=== PATIENT | male | born 1955 | race Caucasian/White ===

== ENCOUNTER 2016-06-24 10:13 | Inpatient (IN) | payer OTHER ==
[~2016-06-24] VITALS: Ht 193 cm; Wt 131.4 kg
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
[~2016-06-24 10:13] MED LIST: 0.9% SODIUM CHLO3 ML INH; ANTI-FUNGAL71 GM TOP; ASMANEX220 MC1 INH; ATIVAN 0.5MG0.5 MG PO; CHLORASEPTIC SP1 BOT PO; DULCOLAX10 MG R; DULERA 200 MCG/51 EA INH; ENGERIX B IM; FUROSEMIDE20 MG PO; KLOR-CON M2020 MEQ PO; LOVENOX40 MG/0.4 SUB-Q; MILK OF MA400 MG/5 M PO; MINERIN CREME454 GM TOP; MIRALAX17 GM PO; NEURONTIN300 MG PO; NORCO 10-325 T1 EACH PO; NORVASC5 MG PO; PAMELOR25 M1 PO; PRAMOSONE TOP; PROVENTIL OR V6.7 GM INH; ROBITUSSIN100 MG/5 M PO; SPIRIVA18 MCG INH; STIOLTO RESPIMAT4 GM INH; THERA-VITE W/ B1 TAB PO; TYLENOL325 MG PO; ULTRAM50 MG PO; VITAMIN B-1100 M1 PO
[2016-06-24 11:03] LABS: BILIRUBIN URINE NEGATIVE (NEGATIVE); BLOOD URINE NEGATIVE /UL (NEGATIVE); GLUCOSE URINE NEGATIVE (NEGATIVE); KETONE URINE NEGATIVE (NEGATIVE); LEUKOCYTES URINE NEGATIVE /UL (NEGATIVE); NITRITE URINE NEGATIVE (NEGATIVE); PH URINE 6.5 (4.0-8.0); PROTEIN URINE NEGATIVE (NEGATIVE); SPEC GRAVITY URINE 1.015 (1.003-1.035); UROBILINOGEN URINE 12 mg/dL (NORMAL)
[2016-06-24 11:07] LABS: COLOR URINE YELLOW (YELLOW); TURBIDITY URINE CLEAR (CLEAR)
--- NOTE | 2016-06-24 14:36 | NUR ---
Significant Event: Pt admitted at 1000. Up in room and reynolds with SBA, sl. unsteady, harper. well. [place] collar on. Weakness to upper and lower ext. Hand grasps are weak. Left hand abrasions and dressing present. Multiple areas of ecchymosis, and abrasions. Laceration with sutures covered by bandaid to left forhead. Percocet 1 tab at 1200. HX of ETOH abuse, Hep C. Yesterday on [facility]U had run of A Fib, echo was done this am prior to transfer. Admission UA has been sent. Follow up: safety, activity, pain management, collar.
--- NOTE | 2016-06-25 00:22 | NUR ---
Significant Event: Alert and oriented. Ad bella in room. Standby assist with gaitbelt in halls. Neck collar on t/o shift. Dr. Canada needs to clarify orders on neck collar and if he can take collar off to shower in am. IV to L) AC flushes well. Takes pills whole with water. Bruising to face. Also has scabs to forehead and nose. Nose scab started bleeding so bandaid was applied. On assessment L) hand has 3-4+ edema and is tender. Called to Dr. Garcia. Order to keep hand elevated. ICE PRN. Also cynthia wrapped for compression. Does have an abrasian from fall on left hand. Vaseline gauze and gauze placed over abrasian and covered with cynthia. Hospitalists will need to be notified if edema goes up into arm. Also Dr. Simms needs to assess to see if patient qualifies for an edema glove. Follow up:
[2016-06-25 05:43] LABS: BASOPHIL % 0.7 %; EOSINOPHIL # 0.4 K/uL (0.0-0.5); EOSINOPHIL % 7.1 %; HEMATOCRIT 38.3 % (37.0-53.0); HEMOGLOBIN 13.4 g/dL (12.0-17.0); IMMATURE GRANULOCYTE % 0.2 %; MCH 34.7 pg (27.0-34.0); MCV 99.2 fl (83.0-98.0); MPV 9.6 fl (9.4-12.4); NEUTROPHIL # (ANC) 2.3 K/uL (1.4-9.0); NRBC % 0 /100WBC (0-0.00); PLATELET COUNT 95 K/uL (150-450); RBC 3.86 M/uL (4.00-6.00); RDW-CV 15.7 % (11.9-14.6); WBC 5.8 K/uL (4.0-11.0)
[2016-06-25 05:57] LABS: ALBUMIN 2.9 gm/dL (3.5-5.0); ALK PHOS 119 IU/L (33-138); ALT 74 IU/L (12-78); ANION GAP 14.1 (10.0-19.0); AST 101 IU/L (10-40); BLOOD UREA NITROGEN 8 mg/dL (6-24); CALCIUM 8.5 mg/dL (8.5-10.5); CHLORIDE 103 mMol/L (96-110); CO2 25 mMol/L (22-32); CREATININE 0.6 mg/dL (0.6-1.3); ESTIMATED GFR (MDRD EQUATION) > 60; POTASSIUM 4.1 mMol/L (3.7-5.1); SODIUM 138 mMol/L (135-145); TOTAL BILIRUBIN 1.5 mg/dL (0.0-1.5); TOTAL PROTEIN 6.3 g/dL (6.0-8.4)
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
--- NOTE | 2016-06-26 03:41 | NUR ---
A/O x 3. Pleasant. Cooperative. OOB in recliner or w/c all evening until 2330. HS snack eaten 100%. Continent of B/B. BM tonight. Up at bella in room only. W/C used when out of room. H.L in LAC. Jobes Hand compression/edema glove on L hand. Hard collar neck brace on at all times. VS stable. Rested well.
--- NOTE | 2016-06-26 15:10 | NUR ---
Significant Event:PATIENT ALERT AND ORIENTED THIS SHIFT. VSS. TRANSFERS INDEPENDANTLY IN ROOM AND IS SBA IN HALLS WITH GAIT BELT. WEARS C COLLAR AT ALL TIMES. TAKES PERCOCET 1 TAB PO FOR PAIN. GIVEN 1 TAB PO AT 1027 THIS AM. WHEELS SELF IN THE HALLS IN HIS WHEELCHAIR OFTEN. WORKED WITH THERAPY THIS AM. DID TAKE A NAP THIS AFTERNOON. REPORTS HE HAS NOT SLEPT WELL THE LAST FEW NIGHTS AND IS VERY TIRED. LACERATION HEALING ON FOREHEAD WITH SUTURES INTACT. HAS SCATTERED BRUISES THAT ARE HEALING. SKIN TEAR TO LEFT HAND DRESSING CHANGED THIS AM. HEALING, NO DRAINAGE NOTED. NO OTHER COMPLAINTS. Follow up:
--- NOTE | 2016-06-27 04:15 | NUR ---
Significant Event: Patient up and down all night is restless. Requested 2 Percocet at 2221. Follow up:
--- NOTE | 2016-06-27 13:09 | NUR ---
Significant Event: Alert and oriented x 3. Up independantly in room and hallway. Patient took walker downstairs to mail a letter. Informed patient that when he leaves the floor he needs to take the wheelchair not the walker. Two percocet given at 1104. Wears C collar at all times. Took a shower this afternoon. Cooperative with cares. Follow up:
--- NOTE | 2016-06-28 02:49 | NUR ---
Significant Event:PT AAO X3.PLEASANT WITH STAFF AND CARES. UP AD MAIDA IN ROOM.PT DOES COME OUT IN HALLWAY AND WALK. REMINDED TO ALERT STAFF IF WANTING TO WALK OUTSIDE OF ROOM. GAIT STEADY. COLLAR TO BE IN PLACE AT ALL TIMES. COMPLAINS OF PAIN TO HIS NECK THAT MOVES DOWN BILATERAL ARMS. PRN PERCOCET GIVEN 2X LAST AT 0010.TAKES MEDICAITON WHOLE WITH NO COMPLICATIONS. 2-3+ PITTING EDEMA TO LOWER BILATERAL EXTREMITIES. FOOT PUMPS IN PLACE.USES CALL LIGHT APPROP. CONT OF BOWEL AND BLADDER. LAST BM WAS 2-26. Follow up:
--- NOTE | 2016-06-28 13:22 | NUR ---
Patient is alert and oriented, VSS. Up ad bella in room and hallways, has to have collar on at all times. He is hepatitis C positive. Nicotine patch to L) upper arm. No IV access. Possible discharge on tuesday.
--- NOTE | 2016-06-28 13:35 | NUR ---
D: Therapeutic Recreation Initial Assessment on the 06/28/16. I: Patient seen for 2 units at 1333 to begin initial evaluation. R: Patient's current living situation and status: apartment Home entrance steps: 0 Living with: alone Spouses name: divorce # of children: 1 17 daughter Driving: no, RYDE or family/friends Ambulating: I Equipment: N/A Hand Dominance: Right Attending Pathologist strength: reports L) side weakness Eye sight: glasses for reading Reading ability: N/T Hearing: MAR[place] Speech: clear Cognition: alert Comprehension: good Following directions: yes Initiating: yes Eye contact: good Affect: bland COMMUNITY INVOLVEMENT: grocery shopping, out to eat, walk every morning for paper/coffee, walking at [email or web address], Library, AA meeting, daughter's events, bird watch LEISURE INTERESTS: watch TV, walk/exercise, writing (short stories, poetry, book), past a dog, note pad (music-internet) Patient is referred by medical staff for treatment and evaluation in the following areas: Community Skills, Functional Leisure Skills, Participation, Leisure Education/Behaviors, Family Education, Emotional. Information obtained: Interview, Chart Review, Observation, other. BARRIERS TO LEISURE: Social, Financial, Physical, Lifestyle (tobacco use and alcohol use) Transportation Attitudinal, Leisure Skills. Patient determined to be: APPROPRIATE FOR THERAPEUTIC RECREATION ASSESSMENT. TREATMENT WILL INCLUDE: Community living skills training Functional leisure development Physical skills development Cognitive skills development Social skills development Leisure education Emotional/behavioral adaptation Family education Community resources/packet TARGET EQUIPMENT/INFORMATION: Parking Permit TO ASSESS NEED Community Resources Energy conservation in community setting Van/Service/Taxi Scrip Adapted Leisure Equipment Stress management/Relaxation techniques Functional car transfers Leisure Education Behaviors: Attitude, Awareness, Participation. Patient functional skills level and potential: Good, pt demonstrates fair mobility with concerns for pain/stress management and coping. Patient oriented ot TR services on Rehab unit. Pt/family provided input into goals setting and plan of care. Pt's goal is be pain free. P: Target date set with personal goals established. Will continue with POC focusing on pt/family training and education. For additional information please see Nursing Data Base, PT, OT, CM, initial assessments to [facility] and Interdisciplinary Assessments.
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
--- NOTE | 2016-06-29 04:25 | NUR ---
A/O x 3. Pleasant. Cooperative. Dinner in dining rm. 100% eaten. 100% eaten of HS snacks x 4. Tolerated well. Request pain medication at HS. W/C used for transportation when out of room. Up at bella in room only. Continent of B/B. BM tonight. Plexi pulse on at HS. Rest well.
--- NOTE | 2016-06-29 14:12 | NUR ---
Significant Event: Pt up in room and reynolds ad bella, steady, harper. fair. Does all cares on own with extra time. Cervical collar on at all times. 2 percocet at 1130. Healing areas of ecchymosis and abrasions. Sutures to left forhead remain intact, note left on chart as to when to remove. Edema all over. Refuses shayna hose. Redness to groins, nystatin in use. Pt cooperative with cares. Follow up: ?suture removal, activity, pain management
--- NOTE | 2016-06-29 16:37 | NUR ---
D: TR progress note for 06/29/16. I: Pt seen for 2 units at 1334 for community integration skills building, functional transfers, and safety awareness. R: Pt seen for functional skills building working on transfers, mobility, and safety to increase independence in anticipation for discharge home and back into community. Pt transferred sit > stand from WC mod I, ambulated 30 feet SBA > I through handicapped accessible enter way and over paved surface with verbal cues to slow pace due to safety concerns. Pt able to recall proper technique for car transfers. Pt transferred in/out of vehicle SBA and was SBA for BLE management and positioning of self with seat surface adapted using trash bag to ease task. Pt tolerated ride with no C/o pain, discomfort, or problems with nausea. P: Will continue to see to address goals and plan of care.
--- NOTE | 2016-06-30 05:17 | NUR ---
Alert and oriented. Up ad bella. Took 2 Percocet for neck pain at 0450. Two sutures removed from forhead without difficulty. Given 40Mg Lasix last evening, Will have Renal panel drawn this am. Will discharge on to [place] drug/alcohol tx program and return on July 19 for more surgery. Daily dsing change due to rt hand with vaseline gauze
[2016-06-30 06:18] LABS: ALBUMIN 2.7 gm/dL (3.5-5.0); ANION GAP 12.2 (10.0-19.0); BLOOD UREA NITROGEN 9 mg/dL (6-24); CALCIUM 8.3 mg/dL (8.5-10.5); CHLORIDE 103 mMol/L (96-110); CO2 28 mMol/L (22-32); CREATININE 0.7 mg/dL (0.6-1.3); ESTIMATED GFR (MDRD EQUATION) > 60; PHOSPHORUS 3.9 mg/dL (2.5-4.9); POTASSIUM 4.2 mMol/L (3.7-5.1); SODIUM 139 mMol/L (135-145)
--- NOTE | 2016-06-30 11:55 | NUR ---
D: TR progress note for 06/30/16. I: Pt seen for 2 units at 1100 in group session for education on safety when around pets/animals, group participation, and leisure education. R: Pt seen for functional skills building working on fine motor skills, scanning, safety awareness and functional social communication in anticipation for discharge back into community/home where animals will be present. Pt independent with personal introduction of self, hometown and sharing with group about past pets. Pt mod I when handling and maneuvering animals during Animal Assisted Therapy utilizing BUE with good safety awareness. Education done on safety with ambulation/mobility in homes when around animals, safety with possibility of poor skin integrity and utilizing pets to assist with coping and stress/pain management when opportunity available. Pt mod I with ambulation to/from session. P: Will discharge tomorrow, 06/30/16.
[2016-06-30] MEDS ORDERED: LOPRESSOR25 MG PO (14:22)
[2016-06-30] MEDS ORDERED: NICOTINE PATCH1 EAC1 TRANS (14:26)
[2016-06-30] MEDS ORDERED: NICODERM / HABIT7 MG TRANS (14:27)
[2016-06-30] MEDS ORDERED: TYLENOL325 MG PO (14:30)
[2016-06-30] MEDS ORDERED: MILK OF MA400 MG/5 M PO (14:32)
[2016-06-30] MEDS ORDERED: PERCOCET 5-3251 EACH PO (14:33)
--- NOTE | 2016-06-30 15:39 | NUR ---
Significant Event:PATIENT ALERT AND ORIENTED THIS SHIFT. VSS. TRANSFERS INDEPENDANTLY IN ROOM. PERCOCET 2 PO AT 1404 FOR PAIN. SKIN TEAR DRESSING CHANGED TODAY PER ORDER. HEALING. PLANS FOR DC TO TREATMENT FACILITY TOMORROW BY 0830 IN THE MORNING. NO OTHER COMPLAINTS. Follow up:
--- NOTE | 2016-07-01 03:53 | NUR ---
A/O x 3. Pleasant. Cooperative. Dinner in room tonight. Up at bella in room. W/C used when out of room. Medicated for pain x 2 during the last 12 hrs. Continent of B/B. Rested fair.
--- NOTE | 2016-07-01 10:09 | NUR ---
Significant Event:PATIENT ALERT AND ORIENTED THIS SHIFT. VSS. TRANSFERS INDENPENDANTLY. READY FOR DISCHARGE. INSTRUCTIONS REVIEWED WITH PATIENT AND VERBALIZES UNDERSTANDING. ALL BELONGING SENT WITH PATIENT. DC FROM HERE AND IS GOING TO FOR REHAB AT THE MD. DC TO FRONT ENTRANCE VIA WHEELCHAIR TO PRIVATE VEHICLE. NO OTHER COMPLAINTS. Follow up:
--- NOTE | 2016-07-01 13:57 | NUR ---
[facility] Case Management Prefunctioning and Psycho-Social Initial Assessment for 06/24/16, Case Conference Note for 06/29/16 and Discharge Note for 07/01/16. D: Initial Swatch ClerkAccounts Receivable Assistant, Case Conference Note, Discharge Note. I: Input from: patient, family, Dr. Fernández, Dr. Simms, Deanna Partida manager ems, Mansi Davis [facility] R: Reason for admission: fall with incomplete central cord syndrome. Surgery in approx. 3-4 weeks. Admission Date to [facility]: 06/24/16 Admission Date to Hospital: 06/22/16 Prior level of functioning: patient was independent with adl's, mobility prior to injury. Prior living situation: apartment Financial resources/expectations: patient has no insurance. Resources used: front wheeled walker, walk-in shower Resources available: HHC, outpatient therapy, SNF, [facility], [facility], DME. Family support available: daughter, brother Understands nature of health condition: yes Recognizes impact of health condition on lifestyle: yes Vocational/Educational: disabled Behavior/Emotional needs: cues for safety. Monitor for signs and symptoms of depression and anxiety. Hx of alcohol abuse. Remote history of drug abuse. Legal concerns: none. Discharge goal: home with support. Assessment: Joseph Aleman" is a 60 year old man from [place] admitted with central cord syndrome. He need to have surgery in approx 3-4 weeks. Patient is currently working on trying to get different housing in the [facility]. Team conference was held on 06/29/16 and plan is to d/c on 07/01/16. Patient will be going to alcohol rehab at the [place]. research worker kitchen said to plan it like a home d/c. They will provide his medications, etc. Patient is wanting to go to rehab at [place]. Brother picking him up on 07/01/16 and transporting. No other needs identified. Will call patient next week to see how he is doing post discharge. Orientation to the program and CM services completed with Derick. Initial plan of care and estimated length of stay discussed, disclosure statement reviewed including patient assessment rights. P: Target date and individual goals established. Please see POC for details. For additional information please see Nursing Data Base, PT, OT, TR, Initial assessments to [facility].
== END 2016-07-01 08:26 | disposition disaster alternative care site (69) | DRG 552 ==
LOC: GIRP 10:13
PROVIDERS: Physician Assistant; ADMIT Physical Medicine & Rehabilitation
PROC: F07M6ZZ Therapeutic Exercise Treatment of Musculoskeletal System - Whole Body (ICD-10-PCS; principal; 2016-06-24)
PROC: F08Z4ZZ Home Management Treatment (ICD-10-PCS; principal; 2016-06-24)
PROC: F06Z6ZZ Communicative/Cognitive Integration Skills Treatment (ICD-10-PCS; principal; 2016-06-24)
PROC: F07Z9ZZ Gait Training/Functional Ambulation Treatment (ICD-10-PCS; principal; 2016-06-24)
DX: M48.02 Spinal stenosis, cervical region (principal); K74.60 Unspecified cirrhosis of liver; I10 Essential (primary) hypertension; E51.9 Thiamine deficiency, unspecified; F10.10 Alcohol abuse, uncomplicated; B37.2 Candidiasis of skin and nail; R53.1 Weakness; R26.9 Unspecified abnormalities of gait and mobility; R29.6 Repeated falls; J43.9 Emphysema, unspecified; F17.200 Nicotine dependence, unspecified, uncomplicated; B19.20 Unspecified viral hepatitis C without hepatic coma; S00.81XD Abrasion of other part of head, subsequent encounter; W18.30XD Fall on same level, unspecified, subsequent encounter; Z98.1 Arthrodesis status; Z87.81 Personal history of (healed) traumatic fracture; L30.9 Dermatitis, unspecified
CPT/HCPCS: J1650